=== PATIENT | male | born 2000 | race Caucasian/White ===

== ENCOUNTER 2023-06-24 01:19 | Emergency (ER) | payer OTHER, SELFPAY ==
[2023-06-24 01:20] VITALS: BP 128/99; PULSE 76; RESP 16; TEMP 36.4; O2SAT 98; BMI 19.5
--- NOTE | 2023-06-24 02:21 | RAD_ITS ---
INDICATION: Injury/Pain -- pinky laceration EXAMINATION/TECHNIQUE: X-RAY - LEFT HAND XR Fingers Min 2 Views COMPARISON: None. FINDINGS: SOFT TISSUES: Soft tissue swelling left 5th digit. BONES/JOINTS: Small nondisplaced corner fracture at outer distal margin of 5th proximal phalanx. Normal alignment. Preservation of the joint space(s). RAD/Finger(s) Min 2 Views IMPRESSION: Small nondisplaced corner fracture distal portion of left 5th proximal phalanx with overlying soft tissue swelling. Electronically Signed: Davonte Khoury MD at 3:31 EDT ,
[2023-06-24] MEDS: Ibuprofen 600 MG Tablet PO (02:38)
[2023-06-24] MEDS: Diphth,Pertuss(Acell),Tet Vac 0.5 ML Vial IM (02:40)
--- NOTE | 2023-06-24 03:09 | EDS_ITS ---
HPI History of Present Illness Chief Complaint: Laceration Informant: patient Narrative Narrative: Patient is a 23-year-old oykqu-xrnz-xfnyscta male presenting for injury and laceration to his left pinky finger. Patient was at work (works at [employer]) and was trying to wrap a pallet. He states he was working quickly and somehow smashed his finger on the end of the line. He states this is a metal piece that is sharp it is not meant for cutting. He denies any other injuries. He has pain and immediately had bleeding/laceration there. No other concerns verbalized to me at this time. Tetanus Immunization: Unknown [facility] Medical History no medical history Home Medications NK 06/24/23 [History Last Taken Unknown] cephalexin 500 mg capsule 500 mg PO Q8H 7 days #21 caps 06/24/23 [Rx Last Taken Unknown] hydrocodone-acetaminophen 5-325mg 5mg-325mg 1 tab PO Q6H PRN PRN Pain 3 days #12 TABLETS 06/24/23 [Rx Last Taken Unknown] Allergy/AdvReac Type Severity Reaction Status Date / Time No Known Allergies Allergy Verified 06/24/23 01:23 Surgical History no surgical history Social History Smoking Status: Current every day smoker tobacco type: cigarettes ROS ROS ED Constitutional Constitutional ED: Denies chills or fever(s) Cardiovascular Cardiovascular: Denies chest pain Respiratory/Chest Respiratory/Chest: Denies cough Gastrointestinal Gastrointestinal: Denies nausea or vomiting Musculoskeletal Musculoskeletal: Reports other Details: Left pinky finger pain/injury Integumentary Reports other Details: Laceration to the left pinky finger Neurologic Neurologic: Denies paresthesias or weakness Psychiatric Psychiatric: Reports anxiety Hematologic/Lymphatic Hematologic/Lymphatic: Denies easy bleeding or easy bruising EXAM Physical Exam Const Vital Signs: 06/24/23 01:20 Temperature 97.6 F L Temperature Source Temporal Pulse Rate 76 Respiratory Rate 16 Blood Pressure 128/99 H Blood Pressure Mean 108 Pulse Ox 98 Oxygen Delivery Method Room Air Positive well nourished and well developed General Appearance ED: well developed and NAD HEENT Reports moist mucous membranes Eyes PERRL Neck full ROM and supple Chest Wall inspection of chest normal Resp normal respiratory effort Cardio regular rate and regular rhythm Extremity Extremity Narrative: Left hand?laceration and slight deformity of the left pinky finger centered around the PIP joint. Patient has difficult time extending the finger completely. There is a laceration over the dorsal aspect of the joint with exposure of the underlying tendon. Neuro oriented x3, moves all extremities, no focal motor deficits and no sensory de ficits noted Sensorium / Orientation: alert Psych Mood & Affect: anxious Skin Skin Narrative: 3 cm full-thickness flap laceration over the dorsal left fifth PIP joint, no active bleeding at this time MDM MDM MDM Narrative Medical decision making narrative: Is evaluated for laceration to the left pinky finger. X-ray obtained which does show an open fracture. There is a chip fracture of the proximal phalanges. Tetanus is updated. Patient is given dose of Ancef in the ER. He is given a dose of Motrin. Laceration repair is performed, see procedure note. Wound was irrigated copiously. Patient tolerated this well. Is placed in a ulnar gutter splint. Patient does not appear to have extensor tendon laceration however the wound does go down to the tendon. Case is discussed with orthopedics on-call, Dr. Ward. He is amenable to outpatient follow-up however does counseled that they do not have hand specialist so patient has any complications or signs of infection he will require transfer. Patient is informed of this and also given information for [facility] as well as [facility] in [place]. He does express interest however and following up at [facility]. Patient is given a dose of oxycodone prior to discharge as his pain is worsening. He remains neurovascularly intact with soft compartments. Counseled that the sutures will need to be removed in approximately 10 days but this will be followed up with orthopedics. Counseled on splint care, elevation, importance of taking his antibiotics. Workmen's Compensation paperwork is filed. Patient given return precaution. Discharged home in stable condition. Is given a sling for comfort since he has a splint. Left finger x-ray reviewed by myself as well as radiology?proximal phalanges chip fracture, nondisplaced Procedures Lacerations 5th left finger : Length: 1.18 in Depth: Muscle Shape: Flap Prep: Chlorhexadine Laceration repair: Irrigated (500cc), Lidocaine, Local, Skin sutures, Subcutaneous sutures (x 1) and Wound explored (Extensor tendon exposed however appears to be intact with no significant laceration. Observed through full flexion and extension) Irrigated (ml): 500 Number of Sutures/Ginger: 4 Suture Information: Ethilon, Simple (1), Horizontal (3) and 4-0 Upper Extremity Splints Upper Extremity Splint: Orthoglass and Ulnar gutter Splint Fabrication: Fabricated Location: Left Discharge Plan Triage Chief Complaint: Laceration ED Provider: Cathie Reeves Dx/Rx/DC Orders Clinical Impression: Open nondisplaced fracture of phalanx of left little finger, Laceration of finger, Need for hxuloidvxf-rntcuap-oucmnpcte (Tdap) vaccine Instructions: ED Fracture, Finger, Open, ED Splint Care, Fiberglass Prescriptions: New cephalexin 500 mg capsule 500 mg PO Q8H 7 Days Qty: 21 0RF hydrocodone-acetaminophen 5-325 mg tablet 1 tab PO Q6H PRN PRN (Reason: Pain) 3 Days Qty: 12 0RF No Action NK Stand Alone Forms: Work Status Form Primary Care Provider: Care Physician,No Primary Referrals: Axel Ward MD [Med Staff - Active Staff] - 2 Days for wound check Marine Gallagher [Non-Staff] - As Needed (for primary care ) Care Physician,No Primary [Primary Care Provider] - Activity Restrictions/Additional Instructions: Your lab work which included a CBC and a BMP was all normal. Your x-ray showed a small nondisplaced corner fracture of the distal portion of the left fifth proximal phalanx. Sutures were placed which will need to be removed and 7 to 10 days. Need to follow-up with orthopedist (bone specialist). If you would like to follow-up locally you been given information for Dr. Ward with [facility]. Please be aware that they do not have a hand specialist there so if there is any signs of complication or infection you will need to be referred to a different facility. If you would like to follow-up with a hand specialist to begin with that is okay. You may follow-up either with the [facility] in [facility] ([phone]) or [facility] [place] ([phone]). Please let either of these offices know that you were seen in the ER at [facility] for an open pinky fracture need follow-up.
[2023-06-24] MEDS: Cefazolin 1 GM/50 ML BAG IV (03:47)
[2023-06-24] MEDS: Lidocaine 1% (20 ml mdv) 20 ML Vial INFILT (03:48)
[2023-06-24 03:54] LABS: Absolute Lymphocyte Count 1.84 X10^3/uL (0.83-4.51); Absolute Neutrophil Count 7.9 X10^3/uL (2.0-7.7); Basophil# 0.06 X10^3/uL; Basophil% 0.6 % (0-1); Eosinophil# 0.13 X10^3/uL; Eosinophils% 1.2 % (0-5); Hematocrit 48.2 % (40-54); Hemoglobin 16.3 g/dL (13.0-16.5); Lymphocyte # 1.84 X10^3/ul (0.83-4.51); Lymphocyte % 17.2 % (19-41); Mean Corp Hgb Conc 33.8 g/dL (32-36); Mean Corpuscular Hgb 30.7 pg (27.0-32.0); Mean Corpuscular Volume 90.8 fL (80-94); Mean Platelet Vol. 8.7 fl (6.2-12.0); Monocyte# 0.74 X10^3/uL; Monocyte% 6.9 % (0-10); NRBC Flagged by Analyzer 0 % (0-5); Neutrophil # 7.86 X10^3/uL (2.7-7.7); Neutrophil % 73.7 % (47-70); Platelet Count 335 K/mm3 (150-450); RBC Distribution Width SD 39.9 fl (35.1-43.9); Red Blood Count 5.31 M/mm3 (4.6-6.2); White Blood Count 10.7 K/mm3 (4.4-11.0)
[2023-06-24 04:13] LABS: Anion Gap 6 (5-15); BUN 13 mg/dL (7-18); BUN/Creat Ratio 13.9 RATIO (10-20); Calcium,Total 9.6 mg/dL (8.5-10.1); Chloride 103 mmol/L (98-107); Creatinine, Serum 0.93 mg/dL (0.70-1.30); EST Glomerular Filtration Rate 108 mL/min (>60); Est Glom Filt Rate - Afr Amer 131 mL/min (>60); Estimated Creatinine Clearance 119.25 ml/min; Glucose 116 mg/dL (74-106); Potassium 3.7 mmol/L (3.5-5.1); Sodium Level 139 mmol/L (136-145)
[2023-06-24 05:06] VITALS: BP 129/74; PULSE 68; RESP 16; O2SAT 98
[2023-06-24] MEDS: oxyCODONE 5 MG Tablet PO (05:11)
== END 2023-06-24 05:18 | disposition home or self-care (01) ==
LOC: ED 01:57
PROVIDERS: Emergency Provider Emergency Medicine; Visit Provider Emergency Medicine
DX: S62.647B Nondisplaced fracture of proximal phalanx of left little finger, initial encounter for open fracture (principal); Y99.0 Civilian activity done for income or pay; F17.210 Nicotine dependence, cigarettes, uncomplicated; Z23 Encounter for immunization; W31.89XA Contact with other specified machinery, initial encounter; Y93.89 Activity, other specified; Y92.69 Other specified industrial and construction area as the place of occurrence of the external cause
CPT/HCPCS: 12002; 29125; 73140; 80048; 85025; 90715; 96365; 99285

== ENCOUNTER 2023-10-04 20:46 | Emergency (ER) | payer BC, SELFPAY ==
[2023-10-04 20:47] VITALS: BP 112/69; PULSE 89; RESP 16; TEMP 36.2; O2SAT 100
--- NOTE | 2023-10-04 21:04 | EX.ED.VIS.PS ---
HPI HPI - Psych History of Present Illness Chief Complaint: Mental Health Informant: patient Narrative Narrative: 23-year-old healthy male states he has felt depressed for the past week or so to the point where it is giving him racing thoughts and trouble getting to sleep which is affecting his work. When asked about what the source of this is he states he is not sure. He does note that he had a relationship that lasted several months that ended up about 2 months ago when his then girlfriend ghosted him with no good reason. He states he still sees her pictures on his wall that she placed there, so they are difficult for him to remove. He agrees this may be related to his depression. In addition, there is a coworker who does not work hard and makes it so that he has to work more and not get paid more which is very stressful to him. He is here with a friend who is here to support him. He states he is not having any suicidal thoughts or ideation or attempts, and wants to get into counseling but does not know how to and is asking for resources. He saw a counselor long ago when he was a child but not since and does not have a history of longstanding depression. PFSH PFSH Medical History no medical history no medical history Home Medications NK 06/24/23 [History Last Taken Unknown] cephalexin 500 mg capsule 500 mg PO Q8H 7 days #21 caps 06/24/23 [Rx Last Taken Unknown] hydrocodone-acetaminophen 5-325mg 5mg-325mg 1 tab PO Q6H PRN PRN Pain 3 days #12 TABLETS 06/24/23 [Rx Last Taken Unknown] Allergy/AdvReac Type Severity Reaction Status Date / Time No Known Allergies Allergy Verified 10/04/23 20:47 Surgical History no surgical history Social History (Updated 10/04/23 @ 21:[address] John Ferrari MD) Smoking Status: Current every day smoker tobacco type: cigarettes substance use type: does not use ROS ROS ED Constitutional Constitutional ED: Reports other Details: insomnia ; Denies chills or fever(s) Eyes Eyes: Denies change in vision or diplopia ENT ENT ED: Denies rhinorrhea or sore throat Cardiovascular Cardiovascular: Denies chest pain or palpitations Respiratory/Chest Respiratory/Chest: Denies cough or dyspnea Gastrointestinal Gastrointestinal: Denies abdominal pain, diarrhea, nausea or vomiting Genitourinary Genitourinary ED: Denies dysuria or hematuria Musculoskeletal Musculoskeletal: Denies back pain or neck pain Integumentary Denies abscess or rash Neurologic Neurologic: Denies headache(s), paresthesias or weakness Psychiatric Psychiatric: Reports depression; Denies homicidal ideation, suicidal ideation or suicidal thoughts EXAM Physical Exam Const Vital Signs: 10/04/23 20:47 Temperature 97.2 F L Temperature Source Temporal Pulse Rate 89 Respiratory Rate 16 Blood Pressure 112/69 Blood Pressure Mean 83 Pulse Ox 100 Oxygen Delivery Method Room Air Positive well nourished and well developed General Appearance ED: well developed and NAD HEENT Reports moist mucous membranes normocephalic and atraumatic Eyes PERRL and EOMs intact bilaterally General Eye ED: Negative for scleral icterus Neck no lymphadenopathy and supple Resp normal respiratory effort GI non-distended Back/Spine no CVA tenderness and normal ROM Extremity normal to inspection General Extremety ED: Negative for edema General Extremity: Negative for edema Neuro oriented x3, CN's II-XII intact bilaterally, no sensory deficits noted and gait normal Sensorium / Orientation: alert Motor Exam: strength 5/5 throughout Psych mental status grossly normal, thought process normal, cooperative, activity/motor behavior normal and denies homicidal ideation Appearance: grossly normal, appropriate and well kempt Attitude: calm and engaged Activity / Motor Behavior: appropriate eye contact Speech: normal speech Mood & Affect: depressed Thought Process: normal thought process Thought Content: normal thought content and No suicidality Insight: insight good Judgement: judgement good Skin Lesions: no lesions Rashes: no rashes MDM MDM MDM Narrative Medical decision making narrative: At this time his vital signs are normal his exam is unremarkable and I do not think he needs a crisis evaluation given the symptoms that he has and the ones that he does not. He is insightful and appears to be using good judgment and asking for help. I will give him referral to [facility] behavioral health services, and advised that he call make an appointment. With regards to his insomnia I am recommending that he take melatonin 5 mg every night as hopefully that will help. He is comfortable with that plan. Discharge Plan Triage Chief Complaint: Mental Health Other Complaint: Depression ED Provider: John Ferrari Dx/Rx/DC Orders Clinical Impression: Dysthymia Instructions: CONTRACT, No Harm, ED Depression Prescriptions: No Action NK cephalexin 500 mg capsule 500 mg PO Q8H 7 Days Qty: 21 0RF hydrocodone-acetaminophen 5-325 mg tablet 1 tab PO Q6H PRN PRN (Reason: Pain) 3 Days Qty: 12 0RF Primary Care Provider: Care Physician,No Primary Referrals: Behavioral,Health [facility] [Group of Physicians] - As soon as possible (call for appt; [phone] (see attached pamphlet for crisis numbers if needed)) Care Physician,No Primary [Primary Care Provider] -
[2023-10-04 21:13] VITALS: BP 128/74; PULSE 91; RESP 16; O2SAT 99; BMI 17.1
--- OUTSIDE RECORDS SUMMARY | 2023-10-04 21:16 | XMS RPT_ITS | CCD ---
Author Name Unknown Address [address] [place] [address] [place] [address] Organization [facility] Results Test Name Value Interpretation Reference Range Facil ity Summary Purpose Family History No Family History Records Found Advance Directives No Advanced Directives Records Found Additional Source Comments (unrecognized sect ion and content) No Status Records Found INFORMATION SOURCE (unrecogn ized section and content) FOR RECORDS PERTAINING TO PATIENTS WHO ARE OR HAVE BEEN ENROLLED IN A CHEMICAL DEPENDENCY/SUBSTANCEABUSE PROGRAM, SOME INFORMATION MAY BE OMITTED. This clinical summary was aggregated from multiple sources. Caution should be exercised in using it in the provision of clinical care. This summary normalizes information from multiple sources, and as a consequence, information in this document may materially change the coding, format and clinical context of patient data. In addition, data may be omitted in some cases. CLINICAL DECISIONS SHOULD BE BASED ON THE PRIMARY CLINICAL RECORDS. [employer] provides no warranty or guarantee of the accuracy or completeness of information in this document.
== END 2023-10-04 21:15 | disposition home or self-care (01) ==
LOC: ED 21:10
PROVIDERS: Emergency Provider Emergency Medicine; Visit Provider Emergency Medicine
DX: F34.1 Dysthymic disorder (principal); F17.210 Nicotine dependence, cigarettes, uncomplicated
CPT/HCPCS: 99282

== ENCOUNTER 2024-10-24 20:09 | Emergency (ER) | payer BC, SELFPAY ==
[2024-10-24 20:11] VITALS: BP 124/79; PULSE 99; RESP 17; TEMP 37; O2SAT 100; BMI 19.4
--- NOTE | 2024-10-24 20:58 | EX.ED.DYSGE1 ---
HPI <BIANCA Maddox - Last Filed: 10/24/24 22:03> History of Present Illness Chief Complaint: General Illness Narrative Narrative: Patient presenting today with flulike symptoms that started this morning. He reports a mild cough, nausea, few episodes of vomiting, body aches, sweats, and chills. He reports that he will need a work note for tonight because he was not able to make it and due to his symptoms. He denies abdominal pain, chest pain, and shortness of breath. PFSH <BIANCA Maddox - Last Filed: 10/24/24 22:03> PFSH Home Medications ?Medication ?Instructions ?Recorded ?Last Taken ?Type ondansetron 4 mg disintegrating 4 mg PO Q8H PRN PRN Nausea #10 tabs 10/24/24 Unknown Rx tablet Allergy/AdvReac Type Severity Reaction Status Date / Time No Known Allergies Allergy Verified 10/24/24 20:10 Surgical History no surgical history Social History Smoking Status: Current every day smoker tobacco type: cigarettes substance use type: does not use ROS <BIANCA Maddox - Last Filed: 10/24/24 22:03> ROS ED Constitutional Constitutional ED: Reports chills and sweats Cardiovascular Cardiovascular: Denies chest pain Respiratory/Chest Respiratory/Chest: Reports cough; Denies dyspnea or sputum Gastrointestinal Gastrointestinal: Reports nausea and vomiting; Denies abdominal pain, constipation or diarrhea Musculoskeletal Musculoskeletal: Reports other Details: Positive for body aches Integumentary Denies rash Neurologic Neurologic: Denies weakness EXAM <BIANCA Maddox - Last Filed: 10/24/24 22:03> Physical Exam Const Vital Signs: 10/24/24 20:11 Temperature 98.6 F Temperature Source Oral Pulse Rate 99 Respiratory Rate 17 Blood Pressure 124/79 H Blood Pressure Mean 94 Pulse Ox 100 Oxygen Delivery Method Room Air Positive well nourished, well developed and no apparent distress General Appearance ED: well developed HEENT Reports normocephalic and head/scalp atraumatic HEENT Narrative: Posterior pharynx clear Mouth ED: Yes moist mucous membranes normal Eyes PERRL and EOMs intact bilaterally Neck full ROM and supple Chest Wall inspection of chest normal Resp normal respiratory effort and clear to auscultation bilaterally Cardio regular rate and regular rhythm GI soft to palpation, non-tender, non-distended and no masses Back/Spine normal ROM and normal to inspection Extremity normal to inspection and full ROM Neuro oriented x3, CN's II-XII intact bilaterally, moves all extremities, no focal motor deficits and no sensory deficits noted Sensorium / Orientation: awake and alert Psych mental status grossly normal and thought process normal Skin no rashes or lesions noted and no wounds <Dr. Scott Mcclure MD - Last Filed: 10/24/24 21:25> Physical Exam Const Vital Signs: 10/24/24 20:11 Temperature 98.6 F Temperature Source Oral Pulse Rate 99 Respiratory Rate 17 Blood Pressure 124/79 H Blood Pressure Mean 94 Pulse Ox 100 Oxygen Delivery Method Room Air MDM <BIANCA Maddox - Last Filed: 10/24/24 22:03> [facility] Narrative Medical decision making narrative: Patient presenting with flulike symptoms that started this morning. He is requesting a work note for tonight. Otherwise, he is nontoxic-appearing and in no acute distress, he is afebrile. Clinically he does not appear dehydrated. I did offer nausea medication he declined and reported he was no longer nauseous. I suspect he has a viral illness. His swab did come back for influenza A. I will give him a prescription for Zofran and a work note. Supportive care measures were discussed, return instructions discussed and patient discharged home in stable condition. I have personally performed a face to face assessment of the patient and have reviewed the JELENA Note. I performed a substantive portion of the visit including all aspects of the following. My moody findings include: History is 24-year-old male no seen past medical history. Says had nausea vomiting cough today. Exam is [well-appearing 24-year-old male. Walking about the room. Vital signs stable afebrile. Pulse ox 100% on room air no hypoxia. H EENT exam pupils round react light. Moist mucous membranes. Neck nontender no lymphadenopathy. No meningismus. Back nontender. Lungs clear to auscultation bilaterally. Heart regular rate and rhythm rate about 90 no murmur. Chest wall and ribs nontender. Abdomen soft nontender. No peritoneal signs. Moving all 4 extremities. Nontender no edema. Normal range of motion. Skin no rashes. Neurologically is awake alert no focal motor deficits.] Medical Decision Making [24-year-old male suspect viral syndrome. Viral testing pending. Be discharged home. Fluids and rest. Tylenol Motrin. Work excuse.] Other additions or changes: [None] Lab Data Attestation: I reviewed the patient's lab results. <Dr. Scott Mcclure MD - Last Filed: 10/24/24 21:25> [facility] Narrative Medical decision making narrative: Patient presenting with flulike symptoms that started this morning. He is requesting a work note for tonight. Otherwise, he is nontoxic-appearing and in no acute distress, he is afebrile. Clinically he does not appear dehydrated. I did offer nausea medication he declined and reported he was no longer nauseous. I suspect he has a viral illness. I have personally performed a face to face assessment of the patient and have reviewed the JELENA Note. I performed a substantive portion of the visit including all aspects of the following. My moody findings include: History is 24-year-old male no seen past medical history. Says had nausea vomiting cough today. Exam is [well-appearing 24-year-old male. Walking about the room. Vital signs stable afebrile. Pulse ox 100% on room air no hypoxia. H EENT exam pupils round react light. Moist mucous membranes. Neck nontender no lymphadenopathy. No meningismus. Back nontender. Lungs clear to auscultation bilaterally. Heart regular rate and rhythm rate about 90 no murmur. Chest wall and ribs nontender. Abdomen soft nontender. No peritoneal signs. Moving all 4 extremities. Nontender no edema. Normal range of motion. Skin no rashes. Neurologically is awake alert no focal motor deficits.] Medical Decision Making [24-year-old male suspect viral syndrome. Viral testing pending. Be discharged home. Fluids and rest. Tylenol Motrin. Work excuse.] Other additions or changes: [None] Discharge Plan Triage Chief Complaint: General Illness ED Midlevel Provider: Sade Harding ED Provider: Scott Mcclure Dx/Rx/DC Orders Clinical Impression: Influenza Instructions: ED Influenza (Adult) Prescriptions: New ondansetron 4 mg tablet,disintegrating 4 mg PO Q8H PRN PRN (Reason: Nausea) Qty: 10 0RF Stand Alone Forms: ED Work / School Excuse Primary Care Provider: Care Physician,No Primary Referrals: Care Physician,No Primary [Primary Care Provider] - Activity Restrictions/Additional Instructions: Follow-up with your PCP, return for any other concerns. You can take [id number] cold and flu medications as needed. Print Language: Turkish Disposition Disposition: Home, Self Care
== END 2024-10-24 22:04 | disposition home or self-care (01) ==
PROVIDERS: Emergency Provider Emergency Medicine; Visit Provider Emergency Medicine
DX: J10.1 Influenza due to other identified influenza virus with other respiratory manifestations (principal); F17.210 Nicotine dependence, cigarettes, uncomplicated
CPT/HCPCS: 87631; 99282

== ENCOUNTER 2024-10-26 00:38 | Emergency (ER) | payer BC, SELFPAY ==
[2024-10-26 00:39] VITALS: BP 119/75; PULSE 85; RESP 16; TEMP 36.8; O2SAT 98; BMI 18.9
[2024-10-26] MEDS: 0.9% Normal Saline (1000mL) 1,000 ML 999 ML IV (01:11)
[2024-10-26] MEDS: Metoclopramide 10 MG/2 ML Vial IV (01:11)
--- NOTE | 2024-10-26 01:43 | EDS_ITS ---
HPI History of Present Illness Chief Complaint: Nausea/Vomiting Narrative Narrative: Patient is a 24-year-old male with a recent diagnosis of influenza who presented to the emerged part with chief complaint of nausea vomiting unable to keep anything down. Patient states that he attempted to use the Zofran he states that he swallowed the pill and states that shortly after this he vomited. He states that he vomited after attempting to drink water, Gatorade, nacho diane he states that he feels like he is dehydrated and came here for IV fluids. Patient denies any abdominal pain PFSH PFSH Home Medications ?Medication ?Instructions ?Recorded ?Last Taken ?Type ondansetron 4 mg disintegrating 4 mg PO Q8H PRN PRN Na usea #10 tabs 10/24/24 Unknown Rx tablet prochlorperazine maleate 10 mg 10 mg PO Q6H PRN nausea and 10/26/24 Unknown Rx tablet vomiting #20 tabs Allergy/AdvReac Type Severity Reaction Status Date / Time No Known Allergies Allergy Verified 10/24/24 20:10 Social History Smoking Status: Current every day smoker tobacco type: cigarettes substance use type: does not use ROS ROS ED ROS Narrative Constitutional: Complains of fever and chills, diffuse bodyaches Cardiovascular: Denies chest pain or palpitations Respiratory: Denies coughing wheezing shortness of breath Abdomen: Complains of nausea vomiting denies abdominal pain : Denies urinary symptoms Neurological: Denies numbness, weakness, tingling Musculoskeletal: Denies back pain Skin: Denies rashes or lesions EXAM Physical Exam Narrative Exam Narrative: General: Patient lying in bed rest comfortably did not appear to be in acute distress Head: Atraumatic, normocephalic Eyes: PERRL bilaterally, EOMI bilaterally, no conjunctival injection noted Neck: Soft, supple, trachea midline Cardiovascular: Regular rate and rhythm no murmurs gallops rubs noted Respiratory: Clear to auscultation bilaterally no rales rhonchi or wheezes noted Abdomen: Soft, nondistended, nontender to palpation, bowel sounds present x 4 Extremities: +5/5 strength noted in the bilateral upper and lower extremities, radial pulses +2/4 in the bilateral extremities Neurological: Patient following commands knew that he was at [facility] years 2024 Skin: Warm, dry, intact no rashes or lesions noted Const Vital Signs: 10/26/24 00:39 Temperature 98.3 F Temperature Source Oral Pulse Rate 85 Respiratory Rate 16 Blood Pressure 119/75 Blood Pressure Mean 89 Pulse Ox 98 Oxygen Delivery Method Room Air MDM MDM MDM Narrative Medical decision making narrative: Patient is a 24-year-old male who presented to the emerged part with chief complaint of nausea vomiting send influenza A and concern for dehydration. Patient will be given IV fluids and antiemetic intravenously. He will be reevaluated. On reevaluation the patient and he is feeling much improved and would like to go home at this point time. Patient educated on the proper use of the dissolvable Zofran. He is encouraged to follow-up with a doctor for which she will be referred to. He will be given a second prescription for antiemetic in case the Zofran is still not working for him. He is agreeable this plan he would like to go home at this point time all question concerns answered he is discharged home in stable condition. Discharge Plan Triage Chief Complaint: Nausea/Vomiting ED Provider: Kush Silva Dx/Rx/DC Orders Clinical Impression: Influenza, Nausea & vomiting Prescriptions: New prochlorperazine maleate 10 mg tablet 10 mg PO Q6H PRN (Reason: nausea and vomiting) Qty: 20 0RF No Action ondansetron 4 mg tablet,disintegrating 4 mg PO Q8H PRN PRN (Reason: Nausea) Qty: 10 0RF Primary Care Provider: Care Physician,No Primary Referrals: Care Physician,No Primary [Primary Care Provider] - Claribel Dunaway Pamela, [employer] [[facility]] - Activity Restrictions/Additional Instructions: Use the Zofran that dissolves under your tongue or the prescription that was sent to your pharmacy do not take both at the same time. Continue supportive care with a bland diet and advance as tolerated. Follow-up with the physician you referred to. Return with worsening symptoms and concerns Print Language: French Disposition Disposition: Home, Self Care
[2024-10-26 02:39] VITALS: BP 132/64; PULSE 71; RESP 16; O2SAT 98
[2024-10-26 03:04] VITALS: BP 132/64; PULSE 71; RESP 16; TEMP 36.8; O2SAT 98
== END 2024-10-26 03:08 | disposition home or self-care (01) ==
PROVIDERS: Emergency Provider Emergency Medicine; Visit Provider Emergency Medicine
DX: R11.2 Nausea with vomiting, unspecified (principal); F17.210 Nicotine dependence, cigarettes, uncomplicated; J10.1 Influenza due to other identified influenza virus with other respiratory manifestations
CPT/HCPCS: 96361; 96374; 99284; A4216

== ENCOUNTER 2025-01-29 19:48 | Emergency (ER) | payer BC, MEDICAID, SELFPAY ==
[2025-01-29 19:49] VITALS: BP 133/74; PULSE 89; RESP 16; TEMP 35.8; O2SAT 100; BMI 19.3
--- NOTE | 2025-01-29 20:20 | ED.VIS.GI ---
HPI HPI - GI History of Present Illness Chief Complaint: Abd Pain Informant: patient Abdominal Pain/Flank Pain Onset: Today Context: Gradual Onset Timing: Continuous Quality: Cramping Location: Diffuse Worsened by: Nothing Relieved by: Nothing Nausea/Vomiting/Emesis GI Symptom: Negative for Nausea or Vomiting Diarrhea/Melena/Hematochezia GI Symptom: Positive for Diarrhea; Negative for Melena or Hematochezia Onset: Today Stool Quality: Positive for Watery Associated Symptoms Associated Symptoms: Positive for Dysuria and Frequency; Negative for Hematuria Narrative Narrative: Patient presents with abdominal pain and diarrhea that began today. Patient states that its gotten gradually worse. Patient states his diarrhea is watery. Patient denies any melena or hematochezia. Patient denies any nausea or vomiting. Patient thinks he may have gotten food poisoning. Patient describes his pain as cramping. Patient states it is diffuse across his entire abdomen. Patient denies any fevers or chills. Patient does admit to some dysuria and urinary frequency. Patient denies any neck or back pain. PFSH PFSH Medical History no medical history no medical history Home Medications ?Medication ?Instructions ?Recorded ?Last Taken ?Type ondansetron 4 mg disintegrating 4 mg PO Q8H PRN PRN Nausea #10 tabs 01/29/25 Unknown Rx tablet Allergy/AdvReac Type Severity Reaction Status Date / Time No Known Allergies Allergy Verified 01/29/25 19:51 Surgical History no surgical history no surgical history Social History Smoking Status: Current every day smoker tobacco type: cigarettes substance use type: does not use ROS ROS ED Constitutional Constitutional ED: Denies chills or fever(s) Eyes Eyes: Denies blurry vision or change in vision ENT ENT ED: Denies rhinorrhea or sore throat Cardiovascular Cardiovascular: Denies chest pain or palpitations Respiratory/Chest Respiratory/Chest: Denies cough or dyspnea Gastrointestinal Gastrointestinal: Reports abdominal pain and diarrhea; Denies nausea or vomiting Genitourinary Genitourinary ED: Denies dysuria or hematuria Musculoskeletal Musculoskeletal: Denies back pain or neck pain Integumentary Reports rash; Denies abscess Neurologic Neurologic: Denies headache(s) or weakness Allergic/Immunologic Allergic/Immunologic ED: Denies mouth swelling or urticaria EXAM Physical Exam Const Vital Signs: 01/29/25 19:49 01/29/25 21:48 Temperature 96.5 F L Temperature Source Temporal Pulse Rate 89 54 L Respiratory Rate 16 16 Blood Pressure 133/74 H 110/64 Blood Pressure Mean 93 79 Pulse Ox 100 100 Oxygen Delivery Method Room Air Room Air Positive well nourished and well developed General Appearance ED: well developed and NAD HEENT Reports moist mucous membranes Neck supple and no JVD Resp normal respiratory effort and clear to auscultation bilaterally Cardio regular rate and regular rhythm GI non-distended Palpation: soft and tender epigastric, LUQ and RUQ; Negative for guarding or rebound tenderness present Neuro CN's II-XII intact bilaterally, moves all extremities and no sensory deficits noted Sensorium / Orientation: alert Motor Exam: strength 5/5 throughout Psych mental status grossly normal MDM MDM MDM Narrative Medical decision making narrative: Differential diagnosis includes gastroenteritis, pancreatitis, viral illness, dehydration, electrolyte abnormality, and urinary tract infection. CBC will be obtained to assess for leukocytosis and anemia. Comprehensive metabolic profile will be obtained to assess for electrolyte abnormality, renal function, and hepatic function. Lipase will be obtained to assess for pancreatitis. Urinalysis will be obtained to assess for urinary tract infection and hematuria. Lab Data Attestation: I reviewed the patient's lab results. Lab results narrative: CBC was reviewed and was within normal limits. Comprehensive metabolic profile was reviewed and was within normal limits. Lipase was reviewed and was normal. Urinalysis was reviewed. There is no evidence of urinary tract infection or hematuria. Labs: Laboratory Results - last 24 hr 01/29/25 01/29/25 20:38 20:50 WBC 6.9 RBC 4.57 L Hgb 14.3 Hct 41.7 MCV 91.2 MCH 31.3 MCHC 34.3 RDW Std Deviation 41.9 RDW Coeff of Lisa 12.7 Plt Count 298 MPV 9.3 Immature Gran % (Auto) 0.100 Neut % (Auto) 58.4 Lymph % (Auto) 27.0 [place] % (Auto) 9.7 Eos % (Auto) 4.2 Baso % (Auto) 0.6 Absolute Neuts (auto) 4.1 Absolute Lymphs (auto) 1.87 Nucleated RBC % 0 Sodium 141 Potassium 3.9 Chloride 105 Carbon Dioxide 24.6 Anion Gap 11 BUN 7 Creatinine 0.85 Estim Creat Clear Calc 127.47 Est GFR (MDRD) Non-Af 125 BUN/Creatinine Ratio 8.3 L Glucose 92 Calcium 9.0 Total Bilirubin 0.32 AST 13 ALT 9 Alkaline Phosphatase 75 Total Protein 6.4 Albumin 4.2 Globulin 2.2 Albumin/Globulin Ratio 1.9 Lipase 39 Urine Color Yellow Urine Clarity Clear Urine pH 6.0 Ur Specific [place] 1.025 Urine Protein 15 H Urine Glucose (UA) Normal Urine Ketones Negative Urine Occult Blood Negative Urine Nitrite Negative Urine Bilirubin Negative Urine Urobilinogen 1 H Ur Leukocyte Esterase Negative Urine RBC 0 SEEN Urine WBC 0-5 SEEN Ur Squamous Epith Cells 0-5 SEEN Urine Bacteria 1+ Urine Mucus 3+ Treatment and Re-Evaluation :: Patient was given IV fluids, Bentyl, and Zofran. Patient was feeling better on reevaluation. Patient was advised of his findings. Patient was instructed to start with a liquid diet and advance as tolerated. Patient was given a prescription for Zofran to take as needed for nausea and vomiting. Patient was instructed to follow-up with his primary care physician in 5 to 7 days. Patient understood and was agreeable with the plan. All questions were answered. Discharge Plan Triage Chief Complaint: Abd Pain ED Provider: Luke Bangura Dx/Rx/DC Orders Clinical Impression: Diarrhea, Abdominal pain Instructions: ED Abdominal Pain Unkn Cause Male... Prescriptions: New ondansetron 4 mg tablet,disintegrating 4 mg PO Q8H PRN PRN (Reason: Nausea) Qty: 10 0RF Stand Alone Forms: ED Work / School Excuse Primary Care Provider: Care Physician,No Primary Referrals: Luke Blackmon MD [Med Staff - Senior Technical Project Manager] - 5-7 Days Care Physician,No Primary [Primary Care Provider] - Print Language: Malagasy Disposition Disposition: Home, Self Care
[2025-01-29] MEDS: Ondansetron 4 MG/2 ML Vial IV (20:38)
[2025-01-29] MEDS: 0.9% Normal Saline (1000mL) 1,000 ML 999 ML IV (20:38)
[2025-01-29] MEDS: Dicyclomine 20 MG/2 ML Vial IM (20:51)
[2025-01-29 20:56] LABS: Red Blood Cells-Urine 0 SEEN /hpf (0-5)
[2025-01-29 20:59] LABS: Color, Urine Yellow (Yellow); Glucose, Dipstick Normal (Normal); Ketone-Dipstick Negative (Negative); Leukocyte Esterase-Dipstick Negative /ul (Negative); Nitrite-Dipstick Negative (Negative); Occult Blood-Urine Negative /ul (Negative); Protein-Dipstick 15 mg/dl (Negative); Specific Gravity, Urine 1.025 (1.002-1.030); Urine Bilirubin Dipstick Negative (Negative); Urine Clarity Clear (Clear); Urine Urobilinogen 1 mg/dl (Normal)
[2025-01-29 21:05] LABS: ALB/GLOB Ratio 1.9 RATIO (0.9-2.4); AST(SGOT) 13 U/L (<=37); Alanine Aminotransfer ALT/SGPT 9 U/L (<=46); Albumin, Serum 4.2 g/dL (3.5-5.0); Alkaline Phosphatase 75 U/L (40-129); Anion Gap 11 (5-15); BUN 7 mg/dL (4-19); BUN/Creat Ratio 8.3 RATIO (10-20); Carbon Dioxide 24.6 mmol/L (21.0-32.0); Chloride 105 mmol/L (98-108); Creatinine, Serum 0.85 mg/dL (0.70-1.20); EST Glomerular Filtration Rate 125 (>60); Estimated Creatinine Clearance 127.47 ml/min (50-250); Globulin 2.2 g/dL (2.2-4.2); Glucose 92 mg/dL (70-99); Lipase 39 U/L (13-75); Potassium 3.9 mmol/L (3.3-5.1); Protein, Total 6.4 g/dL (5.9-8.4); Sodium Level 141 mmol/L (133-145); Total Bilirubin 0.32 mg/dL (0.00-1.30)
[2025-01-29 21:13] LABS: Absolute Lymphocyte Count 1.87 X10^3/uL (0.83-4.51); Absolute Neutrophil Count 4.1 X10^3/uL (2.0-7.7); Basophil# 0.04 X10^3/uL; Basophil% 0.6 % (0-1); Eosinophil# 0.29 X10^3/uL; Eosinophils% 4.2 % (0-5); Hematocrit 41.7 % (40-54); Hemoglobin 14.3 g/dL (13.0-16.5); Lymphocyte # 1.87 X10^3/ul (0.83-4.51); Mean Corp Hgb Conc 34.3 g/dL (32-36); Mean Corpuscular Hgb 31.3 pg (27.0-32.0); Mean Corpuscular Volume 91.2 fL (80-94); Mean Platelet Vol. 9.3 fl (6.2-12.0); Monocyte# 0.67 X10^3/uL; Monocyte% 9.7 % (0-10); NRBC Flagged by Analyzer 0 % (0-5); Neutrophil # 4.05 X10^3/uL (2.7-7.7); Neutrophil % 58.4 % (47-70); Platelet Count 298 K/mm3 (150-450); RBC Distribution Width CV 12.7 % (11.6-14.6); RBC Distribution Width SD 41.9 fl (35.1-43.9); Red Blood Count 4.57 M/mm3 (4.6-6.2); White Blood Count 6.9 K/mm3 (4.4-11.0)
[2025-01-29 21:17] LABS: Bacteria 1+ /hpf (None Seen); Mucous, Urine 3+ /hpf (<or=2+); Squamous Epithelial Cells - UA 0-5 SEEN /hpf (0-5); White Blood Cells 0-5 SEEN /hpf (0-5)
[2025-01-29 21:48] VITALS: BP 110/64; PULSE 54; RESP 16; O2SAT 100
[2025-01-29 22:09] VITALS: BP 110/64; PULSE 54; RESP 16; TEMP 37; O2SAT 100
== END 2025-01-29 22:12 | disposition home or self-care (01) ==
PROVIDERS: Emergency Provider Emergency Medicine; Visit Provider Emergency Medicine
DX: R10.9 Unspecified abdominal pain (principal); R19.7 Diarrhea, unspecified; F17.210 Nicotine dependence, cigarettes, uncomplicated
CPT/HCPCS: 80053; 81001; 83690; 85025; 96361; 96372; 96374; 99283; A4216; J2405